=== PATIENT | male | born 1975 | race Caucasian/White ===

== ENCOUNTER → 2018-07-23 | Outpatient (CLI) | payer OTHER ==
[~2018-07-23] MED LIST: CIPR-214 PO; CITA-128 PO; DENIES; ESC10 PO; FAMO20TA28 PO; GLUC-198 PO; HYDR-389 PO; IBUP600T22 PO; IBUP800T37 PO; KET10 PO; LISI-362 PO; NO ROUTINE MEDS; PER PO; ROPI0.5T25 PO; TRIA15OI20 TP
[2018-07-23 16:55] LABS: PLATELET COUNT, AUTOMATED 229 K/uL (150-450)
== END ==
LOC: LAB 16:40
PROVIDERS: ATTEND Nurse Practitioner Family
DX: I10 Essential (primary) hypertension (principal); R53.83 Other fatigue
CPT/HCPCS: 36415; 82040; 82247; 82310; 82374; 82435; 82465; 82565; 82947; 83718; 84075; 84132; 84155; 84295; 84443; 84450; 84460; 84478; 84520; 85025

== ENCOUNTER → 2018-07-24 | Outpatient (CLI) | payer OTHER | LOC: LAB 06:40 | PROVIDERS: ATTEND Nurse Practitioner Family | DX: Z90.79 Acquired absence of other genital organ(s) (principal); R53.83 Other fatigue | CPT/HCPCS: 36415; 84403 ==

== ENCOUNTER → 2018-07-28 | Outpatient (CLI) | payer OTHER ==
--- NOTE | 2018-07-28 10:01 | EKG ---
FACILITY: [facility] PATIENT NAME: YUNG MCKOY : [id number] MR: [id number] V: [id number] EXAM DATE: ORDERING PHYSICIAN: NANCY COLEY TECHNOLOGIST: [facility] Test Reason : CHEST PAIN Blood Pressure : / mmHG Vent. Rate : 058 BPM Atrial Rate : 058 BPM P-R Int : 150 ms QRS Dur : 084 ms QT Int : 420 ms P-R-T Axes : 056 080 065 degrees QTc Int : 412 ms Sinus bradycardia Otherwise normal ECG When compared with ECG of 01-JUL-2017 10:52, No significant change was found Confirmed by STEPHANIE CARPIO ([id number]) on 07/29/2018 4:24:46 PM Referred By: VIANCA Confirmed By:STEPHANIE CARPIO
[2018-07-28 10:28] LABS: LDL CHOLESTEROL 125 mg/dl
== END ==
LOC: LAB 09:03
PROVIDERS: ATTEND Nurse Practitioner Family
DX: R00.1 Bradycardia, unspecified (principal); E78.5 Hyperlipidemia, unspecified; R53.83 Other fatigue; Z90.79 Acquired absence of other genital organ(s); R10.32 Left lower quadrant pain
CPT/HCPCS: 36415; 82465; 83718; 84403; 84478; 85651; 86140

== ENCOUNTER → 2018-08-12 | Outpatient (CLI) | payer OTHER | LOC: RESP 08-05 01:08 | PROVIDERS: ATTEND Nurse Practitioner Family | DX: J98.4 Other disorders of lung (principal) | CPT/HCPCS: 94060; 94726; 94729 ==

== ENCOUNTER → 2018-08-29 | Outpatient (CLI) | payer OTHER | LOC: RESP 20:57 | PROVIDERS: ATTEND Nurse Practitioner Family | DX: G47.30 Sleep apnea, unspecified (principal); G47.61 Periodic limb movement disorder ==

== ENCOUNTER → 2018-09-08 | Outpatient (CLI) | payer OTHER ==
--- NOTE | 2018-09-08 14:49 | RT STRESS TEST REPORT ---
FACILITY: [facility] [place] PATIENT NAME: YUNG MCKOY : [id number] MR: [id number] V: [id number] EXAM DATE: ORDERING PHYSICIAN: NANCY COLEY TECHNOLOGIST: Kate Acquisition Time: 2018-09-08 08:52:05 Total Exercise Time: 00:08:59 Test Indications: chest pain Medications: N/A Protocol: BRUCE2 Max HR: 171 BPM 95% of Pred: 179 BPM Max BP: 190/057 mmHG Max Work Load: 10.1 METS c/o Dyspnea during the test which persisterd during the recovery and resolved at its own EKG showed Rate related up slopping ST depression in the inferior leads Impression No ischemic changes on the EKG during stress test to suggest ischemis Had dyspnea during the test Confirmed by STEPHANIE CARPIO ([id number]) on 09/08/2018 2:49:33 PM Referred By: Overread By: STEPHANIE CARPIO
== END ==
LOC: RESP 01:13
PROVIDERS: ATTEND Nurse Practitioner Family
DX: R07.9 Chest pain, unspecified (principal)
CPT/HCPCS: 93017

== ENCOUNTER → 2018-10-31 | Outpatient (CLI) | payer OTHER | LOC: LAB 08:46 | PROVIDERS: ATTEND Internal Medicine | DX: R53.82 Chronic fatigue, unspecified (principal); R68.82 Decreased libido | CPT/HCPCS: 36415; 82024; 82533; 83001; 83002; 84146; 84270; 84305; 84403; 84439; 84443 ==

== ENCOUNTER → 2018-11-12 | Outpatient (CLI) | payer OTHER ==
[~2018-11-12] MED LIST changes: +ALBU8.5H; +BENZ200C15 PO; +FLUT12HF2; +GUAI120L3 PO; +POLY10DR20 OD; +PRAM0.1221
--- NOTE | 2018-11-12 17:28 | RADIOLOGY IMAGING REPORT ---
FACILITY: [facility] PATIENT NAME: Saqib Lynn : 1975 MR: [id number] V: [id number] EXAM DATE: ORDERING PHYSICIAN: NANCY COLEY TECHNOLOGIST: Location[place] [facility] [place] Patient: Saqib Lynn : 1975 Visit/Account:[id number] Date of Sevice: 11/12/2018 Technique: CHEST PA AND LAT HISTORY: abn PFT COMPARISON: Chest radiographs June 12, 2017 Findings: The lungs are clear. No pleural effusion or pneumothorax. The cardiomediastinal silhouett e is unremarkable. Impression: 1. No acute cardiopulmonary process. Report Dictated By: Chester Hoyt DO at 11/12/2018 5:16 PM Report E-Signed By: Chester Hoyt DO at 11/12/2018 5:23 PM WSN:[id number]
== END ==
LOC: RAD 16:44
PROVIDERS: ATTEND Nurse Practitioner Family
DX: R94.2 Abnormal results of pulmonary function studies (principal)
CPT/HCPCS: 71046